=== PATIENT | female | born 1970 | race Caucasian/White ===

== ENCOUNTER → 2023-12-04 11:58 | Outpatient (REF) | payer BC, SELFPAY | LOC: WDC 11:58 | PROVIDERS: ATTENDING PHYSICIAN Family Medicine | DX: Z12.31 Encounter for screening mammogram for malignant neoplasm of breast (principal) | CPT/HCPCS: 77063; 77067 ==

== ENCOUNTER → 2024-01-19 08:51 | Outpatient (REF) | payer BC, SELFPAY | LOC: HWRAD 08:51 | PROVIDERS: ATTENDING PHYSICIAN Family Medicine | DX: Z12.4 Encounter for screening for malignant neoplasm of cervix (principal); Z11.3 Encounter for screening for infections with a predominantly sexual mode of transmission; N94.12 Deep dyspareunia | CPT/HCPCS: 76830; 76856 ==

== ENCOUNTER 2024-10-20 01:09 | Inpatient (IN) | payer BC, SELFPAY ==
[2024-10-19 18:45] VITALS: BP 108/76
[2024-10-19 19:38] LABS: % Basophils 0.3 % (0-2); % Immature Granulocytes 0.3 % (0-0.5); % Lymphocytes 7.9 % (20.5-51.1); % Monocytes 7.8 % (1.7-9.3); % Neutrophils 83.7 % (42.2-75.2); Absolute Basophils 0.1 10^3/uL (0-0.2); Absolute Immature Granulocytes 0.1 10^3/uL (0-0.05); Absolute Lymphocytes 1.4 10^3/uL (1.2-3.4); Absolute Monocytes 1.4 10^3/uL (0.1-0.6); Absolute Neutrophils 14.6 10^3/uL (1.4-6.5); Hematocrit 39.8 % (37.0-47.0); Mean Corp Hgb Conc. 35.2 g/dL (33.0-37.0); Mean Corpuscular Hgb 30.3 pg (27.0-31.0); Mean Corpuscular Volume 86.1 fL (81.0-99.0); Mean Platelet Volume 11.9 fL (7.4-10.4); Nucleated Red Blood Cells % 0 %; Platelet Count 199 10^3/uL (130-400); Red Blood Cell Count 4.62 10^6/uL (4.20-5.40); Red Cell Dist. Width 13.5 % (11.5-14.5); White Blood Cell Count 17.4 10^3/uL (4.8-10.8)
--- NOTE | 2024-10-19 19:50 | ED.GENMED ---
History of Present Illness
General
Chief Complaint: Abdominal Pain
Source: patient
Exam Limitations: none
Time Seen by Provider: 10/19/24 19:05
Nursing documentation reviewed up to this point in time: agreed with
History of Present Illness
History of Present Illness:
Patient is a 54-year-old female presenting to the emergency department for evaluation of abdominal pain. Patient states that yesterday around 5 PM she noticed a generalized abdominal pain around her umbilicus. This morning�pain had intensified and
seem to migrate to the right lower quadrant. Patient reports pain is sharp and stabbing, worse with movement. Patient has had no appetite today and last ate yesterday at 5 PM. Patient reports ongoing nausea although no episodes of vomiting. She
felt as if she may have been febrile last night. Patient had 1 episode of diarrhea. Patient denies any urinary symptoms, abnormal vaginal bleeding/discharge. No chest pain or shortness of breath.
No history of similar symptoms. No known sick contacts.
Patient reports past although no other abdominal surgeries.
Past History
Past History
ED Past Medical History: Hypercholesterolemia and Other (Anemia)
ED Past Surgical History: and Other (Breast reduction)
Social History
Tobacco: Non-smoker
Alcohol: Occasional
Drug: None
Personal:
Living: with family
Review of Systems
Review of Systems
Allergies reviewed?: Yes
All Other Systems: ROS reviewed and negative except as documented in HPI and ROS
Phy Exam
Physical Exam
Physical Exam:
Vitals: Tachycardic on arrival, improved with my assessment. Otherwise vital signs stable.
General: Patient is mildly uncomfortable due to pain.
Skin: Warm and dry, no rashes or lesions
Head: Normocephalic, atraumatic
Eyes: Sclera nonicteric. EOMs intact. No nystagmus.
Throat: Protecting airway
Neck: Normal ROM, no cervical spine tenderness, no meningismus
Cardiac: Regular rate and rhythm, no murmurs.
Pulm: Normal respiratory effort, no wheezes, rales, rhonchi heard on exam.
Abdomen: Abdomen soft. Moderate tenderness in right lower quadrant at McBurney's point with voluntary guarding. No rebound tenderness. No CVA tenderness
Extremities: No evidence of cyanosis or edema. Palpable DP pulses bilaterally
Neuro: AAOx3. Grossly intact.
Psychiatric: Normal affect.
Course
Orders/Labs/Results
Orders:
Orders
10/19/24 19:29
Test Result ONCE
10/19/24 19:31
Complete Blood Count/With Diff Urgent
Comprehensive Metabolic Panel Urgent
HCG, Serum Qualitative Screen Urgent
Lipase Urgent
Comment: ADD ON
10/19/24 19:49
CT Abd/pel W Iv And Oral Contr Urgent
Comment:
Reason For Exam: RLQ pain, anorexia
0.9% Sodium Chloride 1000 ml [Nss] 1,000 ml IV BOLUS
Iohexol [Omnipaque] See Protocol PO NOW STA
Ketorolac [Toradol] 15 mg IV NOW STA
Ondansetron Injectable [Zofran] 4 mg IV NOW STA
10/19/24 19:50
Add On- LAB Urgent
Tests Added?: lipase
10/19/24 23:12
Piperacillin/Tazo 3.375 Gram [Zosyn] 3.375 gram in 50 ml IV NOW
10/19/24 23:17
Morphine Sulfate 2 mg IV NOW STA
Abnormal Lab Results
10/19/24
19:31
WBC 17.4 H 10^3/uL
(4.8-10.8)
MPV 11.9 H fL
(7.4-10.4)
Abs Immat Gran (auto) 0.1 H 10^3/uL
(0-0.05)
Absolute Neuts (auto) 14.6 H 10^3/uL
(1.4-6.5)
Absolute Monos (auto) 1.4 H 10^3/uL
(0.1-0.6)
Neutrophils % 83.7 H %
(42.2-75.2)
Lymphocytes % 7.9 L %
(20.5-51.1)
Sodium 133 L mmol/L
(135-145)
BUN 5 L mg/dl
(7-17)
Glucose 116 H mg/dl
(70-99)
10/19/24 19:31
10/19/24 19:31
Vital Signs
Initial and Last Documented VS:
Initial Vital Signs
Temp Pulse Resp BP Pulse Ox
99.3 F 134 16 108/76 99
10/19/24 18:45 10/19/24 18:45 10/19/24 18:45 10/19/24 18:45 10/19/24 18:45
Last Documented Vital Signs
Temp Pulse Resp BP Pulse Ox
99.8 F 98 20 101/68 99
10/19/24 23:05 10/19/24 22:43 10/19/24 22:43 10/19/24 22:43 10/19/24 22:43
MDM/Problems Addressed
Differential Diagnosis Includes:
Not limited to: Appendicitis, diverticulitis, ovarian cyst/torsion, bowel obstruction, etc.
MDM/Problems Addressed:
54-year-old female with right sided abdominal pain since yesterday associated with nausea and anorexia. Low-grade fever at home. No vomiting, urinary, or vaginal bleeding/discharge. Patient tachycardic on arrival although improved by my
assessment. Temp of 99.3F. Physical exam as above. Patient appears mildly uncomfortable due to pain. Abdomen is soft with moderate point tenderness in right lower quadrant McBurney's point with voluntary guarding. No rebound tenderness. Labs
obtained in triage significant for a leukocytosis of 17.4 with left shift. Chemistry without clinically significant abnormalities. Given location of pain and elevated white count�concern for appendicitis. Feel pelvic etiology less likely. Will
obtain CT scan with p.o./IV contrast. Will give IV fluids, Zofran, Toradol.
Update: CT report shows likely acute appendicitis without any identifiable abscess. On reassessment�patient did have improvement in symptoms after Zofran/Toradol. Vital signs remained stable. Discussed with general surgery on-call, Dr. Mathew
who will admit to his service. IV Zosyn initiated in emergency department. Plan for n.p.o. and OR tomorrow. Patient accepted to general surgery service in stable condition.
Chronic conditions affecting care:
N/A
Acute Exacerbation and/or Progression of Chronic Illness:
N/A
*Radiology
Radiology exam reviewed: radiology read reviewed (Acute appendicitis)
*Pulse Oximetry
Patient hypoxic: no
*EKG
Interpreted by ED Provider?: NA
*Conventional Mortgage Underwriter Interpretation
Rate: Conventional Mortgage Underwriter- N/A
*Critical Care Note
Total Time (30-74mins, 75-104mins- exclusive of procedures): Not Applicable
Patient Management
Discussion with other providers: [employer] (General Surgery-Dr. Mathew)
Escalation/DeEscalation of care consider admission/obs:
Admit for OR tomorrow
ED Attending Note
-
Portions of this chart may have been created with voice recognition software.� Occasional wrong word or��sound alike� substitutions may have occurred due to the inherent limitations of voice recognition software.
Discharge Plan
Departure
Patient Disposition: Admit
Date of Disposition: 10/19/24
Time of Disposition: 23:38
Admit to doctor: Dr. Mathew
Presentation/result/management discussed w/ accepting MD/DO: General Surgey
Discharge Problem:
Acute appendicitis
Prescriptions:
No Action
estradiol 0.05 mg/24 hr Patch Semiweekly
1 patch TRANSDERMAL SUTH
vitamin B complex Tablet
1 tab PO DAILY
vitamin E 268 mg (400 unit) Capsule
268 mg PO DAILY
progesterone micronized 100 mg Capsule
100 mg PO HS
Patient Comments:
10/19/24: Patient takes 2 weeks on, 2 weeks off. Just started taking again on Thursday10/16/24.
rosuvastatin 5 mg Tablet
5 mg PO HS
estradiol [Vagifem] 10 mcg Tablet
10 mcg VAGINAL SUWE
Referrals:
Jasmina Genao MD [Family Provider] -
Interventions
Interventions:
*Risk Screen - Suicide Last Done: 10/19/24 20:07
*General Assessment Last Done: 10/19/24 20:07
*Neglect/Abuse Screening Last Done: 10/19/24 20:07
*ED- Fall Risk Assessment Last Done: 10/19/24 20:07
*ED COVID-19 Vaccine History Last Done: 10/19/24 20:07
LE-Qainue-Ubtvruvbow Assessment Last Done: 10/19/24 19:27
Discharge Date and Time
Print Language: ROMANIAN
[2024-10-19 19:57] LABS: HCG, Serum Qualitative Screen Negative
[2024-10-19] MEDS: OMNIPAQUE 50 ML PO (19:57)
[2024-10-19] MEDS: TORADOL 15 MG IV (19:59)
[2024-10-19] MEDS: NSS 1000 IV (19:59)
[2024-10-19] MEDS: ZOFRAN 4 MG IV (19:59)
[2024-10-19 20:00] LABS: ALT (SGPT) 22 U/L (0-35); AST (SGOT) 23 U/L (14-36); Alkaline Phosphatase 64 U/L (38-126); Blood Urea Nitrogen 5 mg/dl (7-17); Calcium 10.2 mg/dl (8.4-10.2); Carbon Dioxide 24 mmol/L (22-30); Chloride 102 mmol/L (98-107); Glucose 116 mg/dl (70-99); Lipase 29 U/L (23-300); Sodium 133 mmol/L (135-145); Total Bilirubin 1.2 mg/dl (0.2-1.3); Total Protein 6.4 g/dl (6.3-8.2); eGFR > 60.00
[2024-10-19 22:43] VITALS: BP 101/68
[2024-10-19] MEDS: MORPHINE SULFATE 2 MG IV (23:27)
[2024-10-19] MEDS: ZOSYN 50 IV (23:28)
[2024-10-20] VITALS (21 sets, daily range): BP systolic 82–113; BP diastolic 50–71; BMI 19.8
--- NOTE | 2024-10-20 00:47 | HPS.HSE ---
Addendum entered and electronically signed by Cornelius Mathew MD 10/20/24 09:21:
Patient seen and examined independently of admitting nurse practitioner this a.m. Family at bedside. Agree with documented history and physical with additions noted here.
HPI: 54-year-old female who was in her baseline state of health and then developed the acute onset of abdominal pain a little over 36 hours ago. Pain was initially periumbilical but then increased in severity and localized to the right lower
quadrant. Nausea and anorexia but no vomiting. Last bowel movement yesterday. Feels a bit bloated/distended. Pain is persistent this a.m. Worse with any movement.
PMH only notable for hypercholesterolemia. PSH
Tmax 100.7 vital signs stable with low-grade sinus tachycardia
NAD AAO x 3
ABD: Soft, slightly distended, tenderness to palpation localized in the right lower quadrant with voluntary guarding or rebound. Well-healed Pfannenstiel surgical scar.
CT abdomen/pelvis imaging personally reviewed. Fecalith in the region of the appendix. Tubular fluid-filled structure with surrounding inflammatory changes and adjacent free fluid. Possible perforated appendicitis but without organizing abscess
or phlegmon. Cecum does not appear to be significantly thickened nor does the terminal ileum.
Assessment/plan: 54-year-old female with acute appendicitis, obstructing fecalith on CT imaging. Possible perforation but without organizing abscess or phlegmon.
Reviewed with patient indications for appendectomy. We also discussed nonoperative management options. After reviewing risks and benefits of both approaches patient wishes to proceed with appendectomy. Laparoscopic appendectomy was reviewed in
detail including the anticipated operative technique, possible operative findings and their management utilizing a bedside diagram and drawling. Alternative treatment options were discussed as well as benefits and risks of surgery such as but not
limited to bleeding, postoperative infectious or wound related complications, iatrogenic injury to surrounding viscera particularly as it relates to the cecum and terminal ileum, we discussed the typical postoperative recovery pending operative
findings. Any of the patient's or her 's concerns or questions were fully addressed and informed consent was confirmed.
Patient is on the OR schedule for appendectomy today
Continue supportive care awaiting timing of OR availability
Zosyn
Original Note:
Family Physician
-
Family Physician: Jasmina Genao MD
Chief Complaint
-
Abdominal pain
History of Present Illness
Patient is a 54 year old female with a past medical history of hypercholesterolemia, who presents to the emergency department for evaluation of abdominal pain. Patient states abdominal pain started around 5 pm yesterday and was generalized abdominal
pain around her umbilicus. This morning�pain had intensified and seem to migrate to the right lower quadrant. Patient reports pain is sharp and stabbing, worse with movement. Patient has had no appetite today and last ate yesterday at 5 PM.
Patient reports ongoing nausea although no episodes of vomiting. She felt as if she may have been febrile last night. Patient had 1 episode of diarrhea. Patient denies any urinary symptoms, abnormal vaginal bleeding/discharge. No chest pain or
shortness of breath. No history of similar symptoms. No known sick contacts. Patient reports past although no other abdominal surgeries.
In the emergency department, Leukocytosis 17.4 with left shift, temp 99.3, vital signs stable. CT Abdomen/Pelvis findings are highly suggestive of appendicitis with an associated appendicolith. Small amount of adjacent free fluid. No evidence for
well-formed abscess. No evidence of free intraperitoneal air.
Patient received IV fluids, Morphine, Toradol, Zofran, IV antibiotics - Zosyn 3.375 IV while in the emergency department.
ED provider, Kely Clarke PA-C, discussed case with General Surgery, Dr. Mathew, who will admit patient to his service. Maintain IV fluids, NPO, IV antibiotics, pain medication and antiemetics.
Medical History
Past Medical History
Past Medical History: Reports Hypercholesterolemia
Past Surgical History: Reports Gynocological (, 2000) and Other (Breast reduction)
Social History
Tobacco: Non-smoker
Alcohol: Occasional
Drug: None
Personal:
Living: With Family
Employment: Employed
Family History
Family History: Not pertinent
Allergies / Home Medications
Allergies reflects when Allergies were last updated in [facility].
Home Medications with original date entered in [facility]
Allergy/Medication List:
Patient Allergies
Allergy/AdvReac Type Severity Reaction Status Date / Time
No Known Allergies Allergy Unverified 10/19/24 18:48
Home Medications
�Medication �Instructions �Recorded
estradiol 0.05 mg/24 hr semiweekly 1 patch transdermal SUTH 10/19/24
transdermal patch
estradiol 10 mcg vaginal tablet 10 mcg vaginal SUWE 10/19/24
(Vagifem)
progesterone micronized 100 mg 100 mg PO HS 10/19/24
capsule
rosuvastatin 5 mg tablet 5 mg PO HS 10/19/24
vitamin B complex 1 tab PO DAILY 10/19/24
vitamin E 268 mg (400 unit) capsule 268 mg PO DAILY 10/19/24
Review of Systems
-
History Source: Patient
A 12 point ROS was completed and negative except as noted: Yes
Constitutional: Reports Fever and Other (poor appetite)
EENT: Reports No Symptoms
Respiratory: Reports No Symptoms
Cardiac: Reports No Symptoms
Abdomen/GI: Reports Abdominal Pain (right lower quadrant ) and Nausea
: Reports No Symptoms
Musculoskeletal: Reports No Symptoms
Skin: Reports No Symptoms
Neurological: Reports No Symptoms
Endocrine: Reports No Symptoms
Hematologic/Lymphatic: Reports No Symptoms
Psych: Reports No Symptoms
Physical Exam
Vital Signs
Vital Signs
Temp Pulse Resp BP Pulse Ox
99.8 F 98 20 101/68 99
10/19/24 23:05 10/19/24 22:43 10/19/24 22:43 10/19/24 22:43 10/19/24 22:43
Physical Exam
General: Well Nourished, Appears in Distress (mild distress), Pain (RLQ abdominal pain) and Poor Appetite
HEENT: Moist mucous membranes and PERRLA
Respiratory: Clear
Cardiac: S1/S2 and Regular Rhythm
GI: Non Distended and Tender (right lower quadrant)
Skin: Warm; No Jaundice
Neuro: AO x 3
Psych: Calm
Laboratory Results
-
10/19/24 19:31
10/19/24 19:
Laboratory Results
Total Bilirubin 1.2 mg/dl (0.2-1.3) 10/19/24:
AST 23 U/L (14-36) 10/19/24:
ALT 22 U/L (0-35) 10/19/24:
Alkaline Phosphatase 64 U/L (38-126) 10/19/24:
Lipase 29 U/L (23-300) 10/19/24:
Data Reviewed
-
CT Scan: Report Reviewed by me
Lab Data: Labs Reviewed by me
Impression/Plan
-
IMPRESSION:
Patient is a 54 year old female with a past medical history of hypercholesterolemia, who presents to the emergency department for evaluation of abdominal pain.
PLAN:
Acute abdominal pain/Acute appendicitis
Admit patient to General Surgery, Dr. Mathew
NPO at midnight
NSS @ 75 mls/hr
Continue IV antibiotics - Zosyn 3.375 g IV Q6H
Pain medications/antimetics PRN
HLD
Continue home medications: Rosuvastatin
DVT Prophylasixs: SCD's
Code Status: Full Code
--- NOTE | 2024-10-20 01:56 | PTCARENOTE ---
Pt transferred to 4 W. Pt able to walk from stretcher to bed. AAOx3, c/o 4/10 pain in RLQ. VSS. Pt oriented to room, able to make needs known, safety measures in place, call prabhakar within reach.
[2024-10-20] MEDS: NSS 1000 IV ×3 (02:19→16:56)
[2024-10-20] MEDS: ZOSYN 50 IV ×4 (05:13→23:24)
[2024-10-20] MEDS: MORPHINE SULFATE 2 MG IV (05:26)
[2024-10-20] MEDS: MORPHINE SULFATE 4 MG IV (06:32)
[2024-10-20 07:34] LABS: Hematocrit 35.8 % (37.0-47.0); Hemoglobin 12.2 g/dL (12.0-16.0); Mean Corp Hgb Conc. 34.1 g/dL (33.0-37.0); Mean Corpuscular Hgb 30.2 pg (27.0-31.0); Mean Corpuscular Volume 88.6 fL (81.0-99.0); Mean Platelet Volume 12.3 fL (7.4-10.4); PT 15.7 Sec (11.4-14.6); Platelet Count 155 10^3/uL (130-400); Red Blood Cell Count 4.04 10^6/uL (4.20-5.40); Red Cell Dist. Width 13.7 % (11.5-14.5); White Blood Cell Count 13.5 10^3/uL (4.8-10.8)
[2024-10-20 08:14] LABS: Blood Urea Nitrogen 6 mg/dl (7-17); Calcium 9.4 mg/dl (8.4-10.2); Carbon Dioxide 27 mmol/L (22-30); Chloride 104 mmol/L (98-107); Estimated Creatinine Clearance 73 ml/min; Glucose 98 mg/dl (70-99); Potassium 3.6 mmol/L (3.5-5.1); Sodium 134 mmol/L (135-145); eGFR > 60.00
--- NOTE | 2024-10-20 09:21 | W.SUR.PREOP ---
Pre-Operative Surgical Note
-
I have examined this patient prior to the performance of the scheduled procedure.
The patient's condition is unchanged from the time of the current History and
Physical and the patient is able to undergo the scheduled procedure.
--- NOTE | 2024-10-20 11:48 | W.IMMPOSTOP ---
Addendum entered and electronically signed by Cornelius Mathew MD 10/20/24 11:57:
#[id number]
Original Note:
Surgical Immed Post Op Note
-
Primary Surgeon: Cornelius Mathew
Assisting Surgeon: LOUIE Hernandez
Pre-op Diagnosis: Acute appendicitis
Post-op Diagnosis: Gangrenous acute appendicitis without abscess, with localized peritonitis
Procedure Performed: Laparoscopic appendectomy
Anesthesia Type: GETA +0.25% Marcaine
Specimen / Cultures: Appendix/none
Estimated Blood Loss: 8 mL
Complications: None immediate
Operative Findings: Walled off gangrenous appendix in the right lower quadrant. Base of appendix clean at the junction of the cecum. No abscess. Purulent free fluid in the pelvis cleared. Appendix divided flush with cecum utilizing Endo [facility]
palomino-purple 30 mm stapler. No disruption of appendix with appendectomy.
Plan: Full liquid diet today, continue Zosyn, monitor for ileus postoperatively
Patient's updated postoperatively in the waiting area.
--- NOTE | 2024-10-20 13:12 | SUR.PHASEI ---
Per Dr Coley pt ok to be dc'd from PACU to Med/surg. BP 85/53, HR 88.
--- NOTE | 2024-10-20 13:20 | CM ---
Initial assessment completed. Patient is a 54 year old female with a past medical history of hypercholesterolemia, who presents to the emergency department for evaluation of abdominal pain.
Patient resides w/ spouse and two sons in a 2STH- 1 step to enter the home. Patient is independent w/ ambulating and ADLs, no DME required or identified. No SNF/VN/PT hx. No current OP or home services at this time.
Address, point of contact and insurance verified
PCP: Jasmina Genao
[facility]
Plan: Home; no needs likely
--- NOTE | 2024-10-20 16:30 | PTCARENOTE ---
1545 Noted pt BP 85/50,pt denies dizziness. Encourage po fluids. Pt mention BP runs low 100/70 at her doctor's office,DR. Mathew notified and recommend to continue to monitor pt. 1630 DR. Mathew tigertexted and ordered IV fluid NSS bolus, explain
to pt and continue to monitor pt.
[2024-10-20] MEDS: LOVENOX 40 MG SC (16:57)
[2024-10-21] MEDS: NSS 1000 IV (02:14)
[2024-10-21] MEDS: ZOSYN 50 IV (05:13)
--- NOTE | 2024-10-21 07:08 | W.PN.GS2 ---
Today's Communication / Plan
-
`
Assessment / Plan
-
Assessment: 54-year-old female POD 1 status post laparoscopic appendectomy
Gangrenous appendicitis, no abscess, no free perforation, some free fluid/purulence noted
Low-grade temperature initially postop -expected
No fever since; BP low but patient runs low BP and is asymptomatic
No signs of developing ileus
Plan: Regular diet for breakfast
Discharge home if tolerating well without any nausea
7-day course of Augmentin due to severity of appendicitis
Subjective Data
-
Date of Service: October 21, 2024
Patient seen and examined.
Feeling well postop. Minimal incisional discomfort. No significant abdominal pains.
Ambulating to void
No nausea, appetite returning
Objective Data
-
Intake and Output
10/20/24 10/21/24 10/22/24
06:59 06:59 06:59
Intake Total 1310 / 1310
Balance 1310 / 1310
Intake:
Oral fluids 510 / 510
IV fluids (Total) 800 / 800
Normosol 800 / 800
Other:
Number of approximated MODERATE 3
amounts of urine
Vital Signs
Temp Pulse Resp BP Pulse Ox
98.0 F 63 18 86/51 99
10/20/24 22:42 10/20/24 22:42 10/20/24 22:42 10/20/24 22:42 10/20/24 22:42
Lab Results
10/20/24 07:04
10/20/24 07:04
Calcium 9.4 mg/dl (8.4-10.2) 10/20/24 07:04
Total Bilirubin 1.2 mg/dl (0.2-1.3) 10/19/24 19:31
AST 23 U/L (14-36) 10/19/24 19:
ALT 22 U/L (0-35) 10/19/24 19:
Alkaline Phosphatase 64 U/L (38-126) 10/19/24 19:
Total Protein 6.4 g/dl (6.3-8.2) 10/19/24:
Albumin 4.0 g/dl (3.5-5.0) 10/19/24:
Physical Exam
-
NAD, AAOx3
ABD: Soft, slightly distended, minimal incisional tenderness
Incisions with glue dressings. No open wounds, no drainage, no erythema, no ecchymosis.
--- NOTE | 2024-10-21 07:14 | W.DS.TRANS ---
Addendum entered and electronically signed by JACEK Manriquez 10/21/24 10:29:
dictated #[id number]
Original Note:
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
-
Discharge Instructions:
Discharge Diagnosis/Procedures Acute appendicitis -gangrenous; without abscess.
Laparoscopic appendectomy
Diet As tolerated,Regular
Additional Diets Smaller meals initially after surgery is
abdominal bloating and distention are common for
the first few days
Activity No strenuous activity
Additional Activity No lifting over 15 to 20 pounds for 2 to 3 weeks
postop
Driving Restrictions No driving for 24 hours postop or if using
narcoti
Bathing Restrictions OK to Shower
Wound Care Glue at surgical sites typically peels off in 2
to 3 weeks
Instructions:
Stand-Alone Forms:
Changes to Home Medications: No
Discharge Medications:
DC Medications w/original date entered in [employer]
estradiol 0.05 mg/24 hr semiweekly transdermal patch 1 patch transdermal SUTH 10/19/24
estradiol 10 mcg vaginal tablet (Vagifem) 10 mcg vaginal SUWE 10/19/24
progesterone micronized 100 mg capsule 100 mg PO HS 10/19/24
rosuvastatin 5 mg tablet 5 mg PO HS 10/19/24
vitamin B complex 1 tab PO DAILY 10/19/24
vitamin E 268 mg (400 unit) capsule 268 mg PO DAILY 10/19/24
acetaminophen 500 mg tablet (Tylenol Extra Strength) 1,000 mg (2 x 500 mg) PO Q6HPRN PRN mild pain #1 tab 10/21/24
amoxicillin 875 mg-potassium clavulanate 125 mg tablet 1 tab PO Q12 antibiotic #12 tabs 10/21/24
ibuprofen 200 mg tablet 400 mg (2 x 200 mg) PO Q6HPRN PRN moderate pain #1 tab 10/21/24
oxycodone 5 mg tablet 5 mg PO Q4HPRN PRN breakthrough/severe pain #5 tabs 10/21/24
polyethylene glycol 3350 17 gram/dose oral powder (Miralax) 4 g PO DAILY PRN Constipation #119 grams 10/21/24
Home Medication Changes
Pending Results: No
[2024-10-21 08:00] VITALS: BP 99/64
--- NOTE | 2024-10-21 11:37 | CM ---
Patient stable for d/c today. Private transport at d/c
No CM needs identified at this time
Plan: Home; no needs
== END 2024-10-21 10:53 | disposition home or self-care (01) | DRG 399 ==
LOC: 4 WEST ACU 01:09
PROVIDERS: Nurse Practitioner Family; Physician Assistant; ADMITTING PHYSICIAN Surgery; EMERGENCY PHYSICIAN Emergency Medicine; FAMILY PHYSICIAN Family Medicine
PROC: 0DTJ4ZZ Resection of Appendix, Percutaneous Endoscopic Approach (ICD-10-PCS; 2024-10-20)
DX: K35.31 Acute appendicitis with localized peritonitis and gangrene, without perforation (principal); D64.9 Anemia, unspecified; E78.00 Pure hypercholesterolemia, unspecified; R63.0 Anorexia; K56.41 Fecal impaction
CPT/HCPCS: 88304; 74177; 80048; 80053; 83690; 84703; 85025; 85027; 85610; 93005; 96361; 96365; 96375; 99285; Q9967

== ENCOUNTER → 2024-12-23 15:53 | Outpatient (REF) | payer BC, SELFPAY | LOC: WDC 15:53 | PROVIDERS: ATTENDING PHYSICIAN Family Medicine | DX: Z12.31 Encounter for screening mammogram for malignant neoplasm of breast (principal) | CPT/HCPCS: 77063; 77067 ==